=== PATIENT | male | born 1960 | race Caucasian/White ===

== ENCOUNTER 2017-11-14 09:00 | Day surgery (SDC) | payer MEDICARE, SELFPAY ==
[~2017-11-14 09:00] MED LIST: ACET500; ALBU3IS INH; ALBU90OI INH; ALLO100 PO; ASPI325; ASPI325EC PO; ASPI81CH PO; COLCHICINE0.6 MG PO; COLCRYS0.6 MG PO; DULERA 200 MCG/13 GM INH; FLUSAL2505 INH; GUAI600T33 PO; HYDACE5 PO; HYDCHL25 PO; IBUP400 PO; IBUP600; IBUP600 PO; IBUP800 PO; INDO50 PO; MELO7.5 PO; MITIGARE0.6 MG PO; MULTIVITAMIN PO; Mucinex600 MG PO; Nicoderm Cq1 EAC1 TOP; Norco 5-325 Ta1 EACH PO; OXYACE5T PO; PRED10 PO; PRED20 PO; Percocet 5-3251 EACH PO; Prednisone20 MG PO; TIOT18 INH
== END 2017-11-14 12:54 | disposition home or self-care (01) ==
LOC: WOUND 09:00
PROC: 0HBNXZZ Excision of Left Foot Skin, External Approach (ICD-10-PCS; principal; 2017-11-14)
PROC: 0HBLXZZ Excision of Left Lower Leg Skin, External Approach (ICD-10-PCS; principal; 2017-11-14)
DX: Z48.00 Encounter for change or removal of nonsurgical wound dressing (principal); I87.2 Venous insufficiency (chronic) (peripheral); E11.622 Type 2 diabetes mellitus with other skin ulcer; L97.821 Non-pressure chronic ulcer of other part of left lower leg limited to breakdown of skin; L97.221 Non-pressure chronic ulcer of left calf limited to breakdown of skin; L97.211 Non-pressure chronic ulcer of right calf limited to breakdown of skin; L98.491 Non-pressure chronic ulcer of skin of other sites limited to breakdown of skin; E11.621 Type 2 diabetes mellitus with foot ulcer; L97.521 Non-pressure chronic ulcer of other part of left foot limited to breakdown of skin
CPT/HCPCS: G0463

== ENCOUNTER 2019-05-28 00:19 | Day surgery (SDC) | payer MEDICARE, OTHER | END 2019-05-28 22:51 | disposition home or self-care (01) | LOC: WOUND 00:19 | DX: E11.622 Type 2 diabetes mellitus with other skin ulcer (principal); L97.812 Non-pressure chronic ulcer of other part of right lower leg with fat layer exposed; L97.811 Non-pressure chronic ulcer of other part of right lower leg limited to breakdown of skin; L97.822 Non-pressure chronic ulcer of other part of left lower leg with fat layer exposed; E11.51 Type 2 diabetes mellitus with diabetic peripheral angiopathy without gangrene; J44.9 Chronic obstructive pulmonary disease, unspecified; I10 Essential (primary) hypertension; M54.9 Dorsalgia, unspecified; G89.29 Other chronic pain; I87.2 Venous insufficiency (chronic) (peripheral) ==

== ENCOUNTER 2019-05-30 08:00 | Day surgery (SDC) | payer MEDICARE, OTHER | END 2019-05-30 23:05 | disposition home or self-care (01) | LOC: WOUND 08:00 | DX: E11.622 Type 2 diabetes mellitus with other skin ulcer (principal); L97.812 Non-pressure chronic ulcer of other part of right lower leg with fat layer exposed; L97.822 Non-pressure chronic ulcer of other part of left lower leg with fat layer exposed; E11.51 Type 2 diabetes mellitus with diabetic peripheral angiopathy without gangrene; I87.2 Venous insufficiency (chronic) (peripheral); J44.9 Chronic obstructive pulmonary disease, unspecified; I10 Essential (primary) hypertension; M54.9 Dorsalgia, unspecified; G89.29 Other chronic pain ==

== ENCOUNTER 2019-06-04 00:20 | Day surgery (SDC) | payer MEDICARE, OTHER | END 2019-06-04 23:34 | disposition home or self-care (01) | LOC: WOUND 00:20 | DX: E11.622 Type 2 diabetes mellitus with other skin ulcer (principal); L97.811 Non-pressure chronic ulcer of other part of right lower leg limited to breakdown of skin; L97.821 Non-pressure chronic ulcer of other part of left lower leg limited to breakdown of skin; E11.51 Type 2 diabetes mellitus with diabetic peripheral angiopathy without gangrene; I87.2 Venous insufficiency (chronic) (peripheral); J44.9 Chronic obstructive pulmonary disease, unspecified; I10 Essential (primary) hypertension; M54.9 Dorsalgia, unspecified; G89.29 Other chronic pain ==

== ENCOUNTER 2019-06-12 00:23 | Day surgery (SDC) | payer MEDICARE, OTHER | END 2019-06-12 23:00 | disposition home or self-care (01) | LOC: WOUND 00:23 | DX: E11.622 Type 2 diabetes mellitus with other skin ulcer (principal); L97.811 Non-pressure chronic ulcer of other part of right lower leg limited to breakdown of skin; L97.821 Non-pressure chronic ulcer of other part of left lower leg limited to breakdown of skin; E11.51 Type 2 diabetes mellitus with diabetic peripheral angiopathy without gangrene; I73.9 Peripheral vascular disease, unspecified; I87.2 Venous insufficiency (chronic) (peripheral); I10 Essential (primary) hypertension | CPT/HCPCS: 87070; 87077; 87147; 87186; 87205 ==

== ENCOUNTER 2019-06-19 00:11 | Day surgery (SDC) | payer MEDICARE, OTHER | END 2019-06-19 22:46 | disposition home or self-care (01) | LOC: WOUND 00:11 | DX: E11.622 Type 2 diabetes mellitus with other skin ulcer (principal); L97.811 Non-pressure chronic ulcer of other part of right lower leg limited to breakdown of skin; L97.822 Non-pressure chronic ulcer of other part of left lower leg with fat layer exposed; I87.2 Venous insufficiency (chronic) (peripheral); E11.51 Type 2 diabetes mellitus with diabetic peripheral angiopathy without gangrene; J44.9 Chronic obstructive pulmonary disease, unspecified; I10 Essential (primary) hypertension; M54.9 Dorsalgia, unspecified; G89.29 Other chronic pain ==

== ENCOUNTER 2019-06-26 00:28 | Day surgery (SDC) | payer MEDICARE, OTHER | END 2019-06-26 22:46 | disposition home or self-care (01) | LOC: WOUND 00:28 | DX: E11.622 Type 2 diabetes mellitus with other skin ulcer (principal); L97.812 Non-pressure chronic ulcer of other part of right lower leg with fat layer exposed; L97.829 Non-pressure chronic ulcer of other part of left lower leg with unspecified severity; E11.51 Type 2 diabetes mellitus with diabetic peripheral angiopathy without gangrene; I73.9 Peripheral vascular disease, unspecified; E11.40 Type 2 diabetes mellitus with diabetic neuropathy, unspecified; I10 Essential (primary) hypertension; I87.2 Venous insufficiency (chronic) (peripheral) ==

== ENCOUNTER 2019-07-03 08:30 | Day surgery (SDC) | payer MEDICARE, OTHER | END 2019-07-03 23:10 | disposition home or self-care (01) | LOC: WOUND 08:30 | DX: E11.622 Type 2 diabetes mellitus with other skin ulcer (principal); L97.811 Non-pressure chronic ulcer of other part of right lower leg limited to breakdown of skin; I87.2 Venous insufficiency (chronic) (peripheral); I10 Essential (primary) hypertension ==

== ENCOUNTER 2019-07-10 00:24 | Day surgery (SDC) | payer MEDICARE, OTHER | END 2019-07-10 22:54 | disposition home or self-care (01) | LOC: WOUND 00:24 | DX: E11.622 Type 2 diabetes mellitus with other skin ulcer (principal); L97.812 Non-pressure chronic ulcer of other part of right lower leg with fat layer exposed; E11.51 Type 2 diabetes mellitus with diabetic peripheral angiopathy without gangrene; I73.9 Peripheral vascular disease, unspecified; E11.40 Type 2 diabetes mellitus with diabetic neuropathy, unspecified; I87.2 Venous insufficiency (chronic) (peripheral); I10 Essential (primary) hypertension ==

== ENCOUNTER 2019-07-17 00:12 | Day surgery (SDC) | payer MEDICARE, OTHER | END 2019-07-17 22:58 | disposition home or self-care (01) | LOC: WOUND 00:12 | DX: E11.622 Type 2 diabetes mellitus with other skin ulcer (principal); L97.811 Non-pressure chronic ulcer of other part of right lower leg limited to breakdown of skin; E11.51 Type 2 diabetes mellitus with diabetic peripheral angiopathy without gangrene; I73.9 Peripheral vascular disease, unspecified; E11.40 Type 2 diabetes mellitus with diabetic neuropathy, unspecified; I87.2 Venous insufficiency (chronic) (peripheral); I10 Essential (primary) hypertension ==

== ENCOUNTER 2019-07-24 00:15 | Day surgery (SDC) | payer MEDICARE, OTHER | END 2019-07-24 23:17 | disposition home or self-care (01) | LOC: WOUND 00:15 | DX: E11.622 Type 2 diabetes mellitus with other skin ulcer (principal); L97.811 Non-pressure chronic ulcer of other part of right lower leg limited to breakdown of skin; I87.2 Venous insufficiency (chronic) (peripheral); E11.51 Type 2 diabetes mellitus with diabetic peripheral angiopathy without gangrene; J44.9 Chronic obstructive pulmonary disease, unspecified; M54.9 Dorsalgia, unspecified; I10 Essential (primary) hypertension; G89.29 Other chronic pain ==

== ENCOUNTER 2019-07-31 00:41 | Day surgery (SDC) | payer MEDICARE, OTHER | END 2019-07-31 22:56 | disposition home or self-care (01) | LOC: WOUND 00:41 | DX: E11.622 Type 2 diabetes mellitus with other skin ulcer (principal); L97.811 Non-pressure chronic ulcer of other part of right lower leg limited to breakdown of skin; I87.2 Venous insufficiency (chronic) (peripheral); E11.51 Type 2 diabetes mellitus with diabetic peripheral angiopathy without gangrene; I73.9 Peripheral vascular disease, unspecified; I10 Essential (primary) hypertension ==

== ENCOUNTER 2019-08-07 08:51 | Day surgery (SDC) | payer MEDICARE, OTHER | END 2019-08-07 22:49 | disposition home or self-care (01) | LOC: WOUND 08:51 | DX: E11.622 Type 2 diabetes mellitus with other skin ulcer (principal); L97.811 Non-pressure chronic ulcer of other part of right lower leg limited to breakdown of skin; I87.2 Venous insufficiency (chronic) (peripheral); E11.51 Type 2 diabetes mellitus with diabetic peripheral angiopathy without gangrene; I73.9 Peripheral vascular disease, unspecified; E11.40 Type 2 diabetes mellitus with diabetic neuropathy, unspecified; I10 Essential (primary) hypertension | CPT/HCPCS: G0463 ==

== ENCOUNTER 2021-05-19 01:20 | Day surgery (SDC) | payer MEDICARE ==
[~2021-05-19 01:20] MED LIST changes: +Albuterol2.5 MG/0.5 INH; +COMBIVENT RESPIM4 GM INH; +FURO40; +FURO40 PO; +Glucophage Xr750 MG PO; +NYST100000; +Prinivil10 MG PO; +SPIRIVA RESPIMAT4 GM INH; +TORSE20 PO; +TRAM50 PO; +Ventolin/Prove6.7 GM INH
== END 2021-05-19 22:50 | disposition home or self-care (01) ==
LOC: WOUND 01:20
DX: E11.622 Type 2 diabetes mellitus with other skin ulcer (principal); L97.822 Non-pressure chronic ulcer of other part of left lower leg with fat layer exposed; E11.620 Type 2 diabetes mellitus with diabetic dermatitis; E11.59 Type 2 diabetes mellitus with other circulatory complications; I87.2 Venous insufficiency (chronic) (peripheral)
CPT/HCPCS: A9270; G0463

== ENCOUNTER 2021-05-26 01:18 | Day surgery (SDC) | payer MEDICARE | END 2021-05-26 23:15 | disposition home or self-care (01) | LOC: WOUND 01:18 | DX: E11.622 Type 2 diabetes mellitus with other skin ulcer (principal); L97.822 Non-pressure chronic ulcer of other part of left lower leg with fat layer exposed; I87.2 Venous insufficiency (chronic) (peripheral); E11.59 Type 2 diabetes mellitus with other circulatory complications; Z88.5 Allergy status to narcotic agent | CPT/HCPCS: A9270 ==

== ENCOUNTER 2021-06-02 01:26 | Day surgery (SDC) | payer MEDICARE | END 2021-06-02 22:48 | disposition home or self-care (01) | LOC: WOUND 01:26 | DX: E11.59 Type 2 diabetes mellitus with other circulatory complications (principal); I87.2 Venous insufficiency (chronic) (peripheral); J44.9 Chronic obstructive pulmonary disease, unspecified; E11.51 Type 2 diabetes mellitus with diabetic peripheral angiopathy without gangrene; I10 Essential (primary) hypertension; Z86.31 Personal history of diabetic foot ulcer; Z88.5 Allergy status to narcotic agent | CPT/HCPCS: G0463 ==

== ENCOUNTER 2021-09-12 15:35 | Emergency (ER) | payer MEDICARE ==
[~2021-09-12] VITALS: Ht 185.4 cm; Wt 147.4 kg
[2021-09-12 16:05] LABS: BASOPHILS ABSOLUTE AUTO 0.05 K/mm3 (0.00-0.23); BASOPHILS PERCENT AUTO 0 % (0-2); EOSINOPHILS ABSOLUTE AUTO 0.45 K/mm3 (0.00-0.68); EOSINOPHILS PERCENT AUTO 4 % (0-6); Hematocrit 44.5 % (37.0-53.0); Hemoglobin 15.3 g/dL (13.5-17.5); IMMATURE GRAN ABSOLUTE AUTO 0.04 K/mm3 (0.00-0.10); IMMATURE GRAN PERCENT AUTO 0 % (0-1); LYMPHOCYTES PERCENT AUTO 15 % (21-46); MONOCYTES ABSOLUTE AUTO 1.07 K/mm3 (0.16-1.47); MONOCYTES PERCENT AUTO 9 % (4-13); Mean Corpuscular HGB 29.8 pg (26.0-34.0); Mean Corpuscular HGB Conc 34.4 g/dL (31.5-36.5); Mean Corpuscular Volume 87 fL (80-100); Mean Platelet Volume 9.1 fL (9.1-12.4); NEUTROPHILS ABSOLUTE AUTO 8.39 K/mm3 (1.96-9.15); NEUTROPHILS PERCENT AUTO 72 % (41-73); Platelet Count 264 K/mm3 (150-400); RDW Coefficient Variation 13.9 % (11.7-14.2); RDW Standard Deviation 44.3 fL (35.1-46.3); Red Blood Cell Count 5.14 M/mm3 (4.30-5.90)
[2021-09-12 16:28] LABS: Alanine Aminotransfer (ALT/SGP 25 U/L (12-78); Albumin, Blood 3.3 g/dL (3.4-5.0); Albumin/Globulin Ratio 0.7 (0.8-1.8); Alk Phos 92 U/L (50-136); Anion Gap 6 mmol/L (6-16); Aspartate Aminotrans (AST/SGOT 13 U/L (12-37); Bilirubin, Total 0.5 mg/dL (0.1-1.0); Blood Urea Nitrogen 5 mg/dL (8-24); Bun/Creatinine Ratio 8.2 (12.0-20.0); CO2, Blood 27 mmol/L (21-32); Calcium, Blood 8.9 mg/dL (8.5-10.1); Chloride, Blood 97 mmol/L (98-108); Creatinine, Blood 0.61 mg/dL (0.60-1.20); Globulin, Blood 4.8 g/dL (2.2-4.0); Glomerular Filtration Rate >60 (60-); Glucose, Blood 221 mg/dL (70-99); Potassium, Blood 3.9 mmol/L (3.5-5.5); Sodium, Blood 130 mmol/L (136-145); Total Protein, Blood 8.1 g/dL (6.4-8.2)
[2021-09-12] MEDS ORDERED: SULTRIDS PO (17:59)
[2021-09-12] MEDS ORDERED: CEPH500 PO (17:59)
== END 2021-09-12 19:14 | disposition home or self-care (01) ==
LOC: ER 15:35
PROVIDERS: Physician Assistant
DX: L03.115 Cellulitis of right lower limb (principal); E11.9 Type 2 diabetes mellitus without complications; J44.9 Chronic obstructive pulmonary disease, unspecified; I10 Essential (primary) hypertension; F17.200 Nicotine dependence, unspecified, uncomplicated; Z88.5 Allergy status to narcotic agent; Z79.899 Other long term (current) drug therapy; Z79.84 Long term (current) use of oral hypoglycemic drugs
CPT/HCPCS: 36415; 80053; 83690; 83880; 85025; 86850; 86900; 86901; 93005; 93010; 93971; 96365; 96375; 99284-25; J0690; J2405; J3010

== ENCOUNTER 2021-10-08 05:34 | Day surgery (SDC) | payer MEDICARE ==
[~2021-10-08 05:34] MED LIST changes: +CEPH500 PO; +SULTRIDS PO
== END 2021-10-08 23:56 | disposition home or self-care (01) ==
LOC: WOUND 05:34
DX: E11.622 Type 2 diabetes mellitus with other skin ulcer (principal); L97.812 Non-pressure chronic ulcer of other part of right lower leg with fat layer exposed; L97.822 Non-pressure chronic ulcer of other part of left lower leg with fat layer exposed; L97.512 Non-pressure chronic ulcer of other part of right foot with fat layer exposed; I87.2 Venous insufficiency (chronic) (peripheral); E11.59 Type 2 diabetes mellitus with other circulatory complications; I10 Essential (primary) hypertension; J44.9 Chronic obstructive pulmonary disease, unspecified; E11.51 Type 2 diabetes mellitus with diabetic peripheral angiopathy without gangrene; Z88.5 Allergy status to narcotic agent
CPT/HCPCS: A9270; G0463

== ENCOUNTER 2021-10-13 05:30 | Day surgery (SDC) | payer MEDICARE | END 2021-10-13 23:19 | disposition home or self-care (01) | LOC: WOUND 05:30 | DX: E11.622 Type 2 diabetes mellitus with other skin ulcer (principal); L97.822 Non-pressure chronic ulcer of other part of left lower leg with fat layer exposed; E11.59 Type 2 diabetes mellitus with other circulatory complications; I87.2 Venous insufficiency (chronic) (peripheral) ==

== ENCOUNTER 2021-10-20 03:34 | Day surgery (SDC) | payer MEDICARE | END 2021-10-21 12:00 | disposition home or self-care (01) | LOC: WOUND 03:34 | DX: E11.622 Type 2 diabetes mellitus with other skin ulcer (principal); L97.822 Non-pressure chronic ulcer of other part of left lower leg with fat layer exposed; I87.2 Venous insufficiency (chronic) (peripheral); E11.59 Type 2 diabetes mellitus with other circulatory complications ==

== ENCOUNTER 2021-10-25 00:51 | Day surgery (SDC) | payer MEDICARE | END 2021-10-25 23:22 | disposition home or self-care (01) | LOC: WOUND 00:51 | DX: E11.622 Type 2 diabetes mellitus with other skin ulcer (principal); L97.812 Non-pressure chronic ulcer of other part of right lower leg with fat layer exposed; L97.822 Non-pressure chronic ulcer of other part of left lower leg with fat layer exposed; L97.512 Non-pressure chronic ulcer of other part of right foot with fat layer exposed; I87.2 Venous insufficiency (chronic) (peripheral); E11.59 Type 2 diabetes mellitus with other circulatory complications | CPT/HCPCS: A9270 ==

== ENCOUNTER 2021-11-08 02:56 | Day surgery (SDC) | payer MEDICARE | END 2021-11-08 22:45 | disposition home or self-care (01) | LOC: WOUND 02:56 | DX: E11.622 Type 2 diabetes mellitus with other skin ulcer (principal); L97.812 Non-pressure chronic ulcer of other part of right lower leg with fat layer exposed; E11.621 Type 2 diabetes mellitus with foot ulcer; L97.512 Non-pressure chronic ulcer of other part of right foot with fat layer exposed; L97.822 Non-pressure chronic ulcer of other part of left lower leg with fat layer exposed; I10 Essential (primary) hypertension; J44.9 Chronic obstructive pulmonary disease, unspecified; I87.2 Venous insufficiency (chronic) (peripheral); E11.59 Type 2 diabetes mellitus with other circulatory complications | CPT/HCPCS: A9270 ==

== ENCOUNTER 2021-11-15 03:19 | Day surgery (SDC) | payer MEDICARE | END 2021-11-15 23:32 | disposition home or self-care (01) | LOC: WOUND 03:19 | DX: E11.622 Type 2 diabetes mellitus with other skin ulcer (principal); L97.812 Non-pressure chronic ulcer of other part of right lower leg with fat layer exposed; L97.822 Non-pressure chronic ulcer of other part of left lower leg with fat layer exposed; E11.621 Type 2 diabetes mellitus with foot ulcer; L97.512 Non-pressure chronic ulcer of other part of right foot with fat layer exposed; E11.59 Type 2 diabetes mellitus with other circulatory complications; I87.2 Venous insufficiency (chronic) (peripheral); J44.9 Chronic obstructive pulmonary disease, unspecified; E11.51 Type 2 diabetes mellitus with diabetic peripheral angiopathy without gangrene; I10 Essential (primary) hypertension | CPT/HCPCS: A9270 ==

== ENCOUNTER 2021-11-22 03:16 | Day surgery (SDC) | payer MEDICARE | END 2021-11-22 23:43 | disposition home or self-care (01) | LOC: WOUND 03:16 | DX: E11.622 Type 2 diabetes mellitus with other skin ulcer (principal); L97.812 Non-pressure chronic ulcer of other part of right lower leg with fat layer exposed; L97.822 Non-pressure chronic ulcer of other part of left lower leg with fat layer exposed; E11.621 Type 2 diabetes mellitus with foot ulcer; L97.512 Non-pressure chronic ulcer of other part of right foot with fat layer exposed; I10 Essential (primary) hypertension; E11.51 Type 2 diabetes mellitus with diabetic peripheral angiopathy without gangrene; J44.9 Chronic obstructive pulmonary disease, unspecified; I87.2 Venous insufficiency (chronic) (peripheral); E11.59 Type 2 diabetes mellitus with other circulatory complications; L03.311 Cellulitis of abdominal wall | CPT/HCPCS: A9270 ==

== ENCOUNTER 2021-11-29 03:04 | Day surgery (SDC) | payer MEDICARE | END 2021-11-29 12:00 | disposition home or self-care (01) | LOC: WOUND 03:04 | DX: E11.622 Type 2 diabetes mellitus with other skin ulcer (principal); L97.822 Non-pressure chronic ulcer of other part of left lower leg with fat layer exposed; L97.812 Non-pressure chronic ulcer of other part of right lower leg with fat layer exposed; E11.621 Type 2 diabetes mellitus with foot ulcer; L97.512 Non-pressure chronic ulcer of other part of right foot with fat layer exposed; E11.59 Type 2 diabetes mellitus with other circulatory complications; I87.2 Venous insufficiency (chronic) (peripheral); L03.311 Cellulitis of abdominal wall; E11.51 Type 2 diabetes mellitus with diabetic peripheral angiopathy without gangrene; J44.9 Chronic obstructive pulmonary disease, unspecified; I10 Essential (primary) hypertension | CPT/HCPCS: A9270 ==

== ENCOUNTER 2021-12-06 02:04 | Day surgery (SDC) | payer MEDICARE | END 2021-12-06 23:18 | disposition home or self-care (01) | LOC: WOUND 02:04 | DX: E11.622 Type 2 diabetes mellitus with other skin ulcer (principal); L97.812 Non-pressure chronic ulcer of other part of right lower leg with fat layer exposed; L97.822 Non-pressure chronic ulcer of other part of left lower leg with fat layer exposed; L97.519 Non-pressure chronic ulcer of other part of right foot with unspecified severity; I87.2 Venous insufficiency (chronic) (peripheral); E11.59 Type 2 diabetes mellitus with other circulatory complications; L03.311 Cellulitis of abdominal wall; J44.9 Chronic obstructive pulmonary disease, unspecified; I10 Essential (primary) hypertension; E11.621 Type 2 diabetes mellitus with foot ulcer | CPT/HCPCS: A9270; G0463 ==

== ENCOUNTER 2021-12-13 01:34 | Day surgery (SDC) | payer MEDICARE | END 2021-12-13 23:42 | disposition home or self-care (01) | LOC: WOUND 01:34 | DX: E11.622 Type 2 diabetes mellitus with other skin ulcer (principal); L97.822 Non-pressure chronic ulcer of other part of left lower leg with fat layer exposed; L97.812 Non-pressure chronic ulcer of other part of right lower leg with fat layer exposed; E11.59 Type 2 diabetes mellitus with other circulatory complications; I87.2 Venous insufficiency (chronic) (peripheral); L03.311 Cellulitis of abdominal wall | CPT/HCPCS: G0463 ==

== ENCOUNTER 2021-12-20 03:02 | Day surgery (SDC) | payer MEDICARE | END 2021-12-20 23:42 | disposition home or self-care (01) | LOC: WOUND 03:02 | DX: L97.812 Non-pressure chronic ulcer of other part of right lower leg with fat layer exposed (principal); I87.2 Venous insufficiency (chronic) (peripheral); L03.311 Cellulitis of abdominal wall; E11.51 Type 2 diabetes mellitus with diabetic peripheral angiopathy without gangrene; J44.9 Chronic obstructive pulmonary disease, unspecified; I10 Essential (primary) hypertension | CPT/HCPCS: G0463 ==

== ENCOUNTER 2022-01-03 02:19 | Day surgery (SDC) | payer MEDICARE | END 2022-01-03 22:48 | disposition home or self-care (01) | LOC: WOUND 02:19 | DX: E11.622 Type 2 diabetes mellitus with other skin ulcer (principal); L97.812 Non-pressure chronic ulcer of other part of right lower leg with fat layer exposed; L97.822 Non-pressure chronic ulcer of other part of left lower leg with fat layer exposed; I87.2 Venous insufficiency (chronic) (peripheral); E11.59 Type 2 diabetes mellitus with other circulatory complications; L03.311 Cellulitis of abdominal wall; E11.51 Type 2 diabetes mellitus with diabetic peripheral angiopathy without gangrene; J44.9 Chronic obstructive pulmonary disease, unspecified; I10 Essential (primary) hypertension | CPT/HCPCS: A9270; G0463 ==

== ENCOUNTER 2022-06-08 19:42 | Inpatient (IN) | payer MEDICARE, OTHER ==
[~2022-06-08] VITALS: Ht 185.4 cm; Wt 155.7 kg
[~2022-06-08 19:42] MED LIST changes: -Glucophage Xr750 MG PO; +METF500C PO
[2022-06-08 20:26] LABS: BASOPHILS ABSOLUTE AUTO 0.07 K/mm3 (0.00-0.23); BASOPHILS PERCENT AUTO 0 % (0-2); EOSINOPHILS ABSOLUTE AUTO 0.12 K/mm3 (0.00-0.68); EOSINOPHILS PERCENT AUTO 1 % (0-6); Hematocrit 40.6 % (37.0-53.0); Hemoglobin 13.9 g/dL (13.5-17.5); IMMATURE GRAN ABSOLUTE AUTO 0.08 K/mm3 (0.00-0.10); IMMATURE GRAN PERCENT AUTO 1 % (0-1); LYMPHOCYTES ABSOLUTE AUTO 1.66 K/mm3 (0.84-5.20); LYMPHOCYTES PERCENT AUTO 10 % (21-46); MONOCYTES ABSOLUTE AUTO 0.88 K/mm3 (0.16-1.47); MONOCYTES PERCENT AUTO 5 % (4-13); Mean Corpuscular HGB 29.6 pg (26.0-34.0); Mean Corpuscular HGB Conc 34.2 g/dL (31.5-36.5); Mean Corpuscular Volume 86 fL (80-100); Mean Platelet Volume 9.9 fL (9.1-12.4); NEUTROPHILS ABSOLUTE AUTO 14.37 K/mm3 (1.96-9.15); NEUTROPHILS PERCENT AUTO 84 % (41-73); Platelet Count 248 K/mm3 (150-400); RDW Coefficient Variation 14.2 % (11.7-14.2); RDW Standard Deviation 45.2 fL (35.1-46.3); White Blood Cell Count 17.18 K/mm3 (4.00-11.30)
[2022-06-08 20:39] LABS: Alanine Aminotransfer (ALT/SGP 33 U/L (12-78); Albumin, Blood 3.1 g/dL (3.4-5.0); Albumin/Globulin Ratio 0.7 (0.8-1.8); Alk Phos 81 U/L (50-136); Anion Gap 5 mmol/L (6-16); Aspartate Aminotrans (AST/SGOT 22 U/L (12-37); Bilirubin, Total 0.5 mg/dL (0.1-1.0); Blood Urea Nitrogen 14 mg/dL (8-24); Bun/Creatinine Ratio 20.9 (12.0-20.0); CO2, Blood 26 mmol/L (21-32); Calcium, Blood 9.4 mg/dL (8.5-10.1); Chloride, Blood 98 mmol/L (98-108); Creatinine, Blood 0.67 mg/dL (0.60-1.20); Globulin, Blood 4.4 g/dL (2.2-4.0); Glomerular Filtration Rate 106 (60-); Glucose, Blood 134 mg/dL (70-99); Potassium, Blood 3.8 mmol/L (3.5-5.5); Sodium, Blood 129 mmol/L (136-145); Total Protein, Blood 7.5 g/dL (6.4-8.2)
[2022-06-08 21:16] LABS: C-REACTIVE PROTEIN, EXT RANGE >19.000 mg/dL (0.000-0.300)
[2022-06-09 05:01] LABS: BASOPHILS ABSOLUTE AUTO 0.05 K/mm3 (0.00-0.23); BASOPHILS PERCENT AUTO 0 % (0-2); EOSINOPHILS ABSOLUTE AUTO 0.17 K/mm3 (0.00-0.68); EOSINOPHILS PERCENT AUTO 1 % (0-6); Hematocrit 39.3 % (37.0-53.0); Hemoglobin 13.4 g/dL (13.5-17.5); IMMATURE GRAN ABSOLUTE AUTO 0.07 K/mm3 (0.00-0.10); IMMATURE GRAN PERCENT AUTO 1 % (0-1); LYMPHOCYTES ABSOLUTE AUTO 1.37 K/mm3 (0.84-5.20); LYMPHOCYTES PERCENT AUTO 10 % (21-46); MONOCYTES ABSOLUTE AUTO 0.91 K/mm3 (0.16-1.47); MONOCYTES PERCENT AUTO 7 % (4-13); Mean Corpuscular HGB 29.5 pg (26.0-34.0); Mean Corpuscular HGB Conc 34.1 g/dL (31.5-36.5); Mean Corpuscular Volume 87 fL (80-100); Mean Platelet Volume 9.8 fL (9.1-12.4); NEUTROPHILS ABSOLUTE AUTO 11.13 K/mm3 (1.96-9.15); NEUTROPHILS PERCENT AUTO 81 % (41-73); Platelet Count 234 K/mm3 (150-400); RDW Coefficient Variation 14.3 % (11.7-14.2); RDW Standard Deviation 45.2 fL (35.1-46.3); Red Blood Cell Count 4.54 M/mm3 (4.30-5.90)
[2022-06-09 05:23] LABS: Albumin, Blood 2.9 g/dL (3.4-5.0); Albumin/Globulin Ratio 0.7 (0.8-1.8); Bilirubin, Total 0.4 mg/dL (0.1-1.0); Bun/Creatinine Ratio 18.8 (12.0-20.0); Calcium, Blood 8.8 mg/dL (8.5-10.1); Creatinine, Blood 0.74 mg/dL (0.60-1.20); Globulin, Blood 4.2 g/dL (2.2-4.0); Potassium, Blood 3.5 mmol/L (3.5-5.5); Total Protein, Blood 7.1 g/dL (6.4-8.2)
--- NOTE | 2022-06-09 06:23 | NUR ---
SHIFT SUMMARY PATIENT A&0X4, PLEASANT AND COOPERATIVE. CELLULITIS ON LEFT L MARKED WITH DEMARCATION LINES. WOUNDS WERE DOCUMENTED ON ARRIVAL, AND PICTURES PLACED IN THE CHART. RT PROVIDED A BREATHING TREATMENT. SBA TO BATHROOM WITH FWW. CALL LIGHT WITHIN REACH.
--- NOTE | 2022-06-09 17:33 | NUR ---
SHIFT SUMMARY PT ADMITTED FOR CELLULITIS OF THE L LEG. 2 SORES PRESENT ON THE LEG AND COVERED. PT'S LEG IS COVERED WITH ARLEEN DRESSING FOR COMFORT. AWAITING WOUND CARE CONSULT AND RECEIVING IV ABX. PT TREATED FOR PAIN PER EMR. VSS. WILL REPORT TO ANDREA HAILE.
[2022-06-10 04:53] LABS: BASOPHILS ABSOLUTE AUTO 0.04 K/mm3 (0.00-0.23); BASOPHILS PERCENT AUTO 1 % (0-2); EOSINOPHILS ABSOLUTE AUTO 0.43 K/mm3 (0.00-0.68); EOSINOPHILS PERCENT AUTO 5 % (0-6); Hematocrit 38.9 % (37.0-53.0); Hemoglobin 13.1 g/dL (13.5-17.5); IMMATURE GRAN ABSOLUTE AUTO 0.04 K/mm3 (0.00-0.10); IMMATURE GRAN PERCENT AUTO 1 % (0-1); LYMPHOCYTES ABSOLUTE AUTO 1.36 K/mm3 (0.84-5.20); LYMPHOCYTES PERCENT AUTO 17 % (21-46); MONOCYTES ABSOLUTE AUTO 0.82 K/mm3 (0.16-1.47); MONOCYTES PERCENT AUTO 10 % (4-13); Mean Corpuscular HGB 29.3 pg (26.0-34.0); Mean Corpuscular HGB Conc 33.7 g/dL (31.5-36.5); Mean Corpuscular Volume 87 fL (80-100); Mean Platelet Volume 9.8 fL (9.1-12.4); NEUTROPHILS ABSOLUTE AUTO 5.22 K/mm3 (1.96-9.15); NEUTROPHILS PERCENT AUTO 66 % (41-73); Platelet Count 214 K/mm3 (150-400); RDW Coefficient Variation 14.1 % (11.7-14.2); RDW Standard Deviation 45.2 fL (35.1-46.3); Red Blood Cell Count 4.47 M/mm3 (4.30-5.90); White Blood Cell Count 7.91 K/mm3 (4.00-11.30)
--- NOTE | 2022-06-10 04:57 | NUR ---
SHIFT SUMMARY: A/OX4, ADLIB IN ROOM. PT REQUESTED IV FLUIDS TO BE STOPPED DUE TO ADEQUATE PO INTAKE- SÁNCHEZ DOYLE APPROVED STOPPING IV FLUIDS. PER PT CHRONIC BACK PAIN DOES NOT ALLOW HIM TO LAY DOWN IN BED, BED SET TO CHAIR POSITION TO ASSIST IN COMFORT FOR SLEEPING. NO ACUTE CHANGES THROUGHOUT THE NIGHT. BED IN LOW POSITION, CALL JORGE AND BELONGINGS IN REACH.
[2022-06-10 05:22] LABS: Bun/Creatinine Ratio 14.4 (12.0-20.0); Calcium, Blood 8.7 mg/dL (8.5-10.1); Creatinine, Blood 0.56 mg/dL (0.60-1.20); Potassium, Blood 3.8 mmol/L (3.5-5.5)
[2022-06-10] MEDS ORDERED: TERB250 PO (15:40)
[2022-06-10] MEDS ORDERED: VISBIOME 112.51 EACH PO (15:40)
[2022-06-10] MEDS ORDERED: CEFTRIAXONE2 G1 IV (15:40)
--- NOTE | 2022-06-10 17:22 | NUR ---
DISCHARGE SUMMARY PATIENT DISCHARGED HOME. DISCHARGE PAPERWORK REVIEWED WITH PATIENT AND ALL QUESTIONS ANSWERED. PRESCRIPTIONS FAXED TO PREFERRED PHARMACY. IV D/C'D. FUTURE APPTS AT [facility] IV [facility]OT[facility] CONFIRMED AND WRITTEN ON PATIENTS DISCHARGE PAPERWORK. PATIENT AND ALL BELONGINGS TAKEN VIA WHEEL CHAIR TO PERSONAL VEHICLE AND TAKEN BY FAMILY.
== END 2022-06-10 17:10 | disposition home or self-care (01) | DRG 872 ==
LOC: ER 19:42 → MEDS 22:51 → ER 06-09 00:11 → MEDS 06-09 01:01
PROVIDERS: Emergency Medicine; Family Medicine; ADMIT Internal Medicine
DX: A41.9 Sepsis, unspecified organism (principal); L03.115 Cellulitis of right lower limb; E87.1 Hypo-osmolality and hyponatremia; E11.9 Type 2 diabetes mellitus without complications; J44.9 Chronic obstructive pulmonary disease, unspecified; I87.2 Venous insufficiency (chronic) (peripheral); M10.9 Gout, unspecified; B35.1 Tinea unguium; F17.210 Nicotine dependence, cigarettes, uncomplicated; Z88.5 Allergy status to narcotic agent; Z98.890 Other specified postprocedural states; Z79.899 Other long term (current) drug therapy; Z79.84 Long term (current) use of oral hypoglycemic drugs; S99.921A Unspecified injury of right foot, initial encounter; W18.30XA Fall on same level, unspecified, initial encounter
CPT/HCPCS: 36415; 80048; 80053; 82947; 83605; 83880; 85025; 85651; 86140; 87040; 93005; 93010; 94640; 94664; 94760; 96365; 96366; 96375; 99285-25; A9270; J0690; J1650; J1885; J2765; J3370; J7030; J7050; J7120

== ENCOUNTER 2022-06-11 09:24 | Day surgery (SDC) | payer MEDICARE ==
[~2022-06-11 09:24] MED LIST changes: +CEFTRIAXONE2 G1 IV; +TERB250 PO; +VISBIOME 112.51 EACH PO
== END 2022-06-11 09:54 | disposition home or self-care (01) ==
LOC: ATC 09:24
DX: L03.115 Cellulitis of right lower limb (principal); I10 Essential (primary) hypertension; E11.9 Type 2 diabetes mellitus without complications; J44.9 Chronic obstructive pulmonary disease, unspecified; F17.210 Nicotine dependence, cigarettes, uncomplicated; Z88.5 Allergy status to narcotic agent; Z79.84 Long term (current) use of oral hypoglycemic drugs; Z79.51 Long term (current) use of inhaled steroids; Z79.899 Other long term (current) drug therapy
CPT/HCPCS: 96374; J0696

== ENCOUNTER 2022-06-12 09:32 | Day surgery (SDC) | payer MEDICARE | END 2022-06-12 09:53 | disposition home or self-care (01) | LOC: ATC 09:32 | DX: L03.115 Cellulitis of right lower limb (principal); I10 Essential (primary) hypertension; E11.9 Type 2 diabetes mellitus without complications; J44.9 Chronic obstructive pulmonary disease, unspecified; F17.210 Nicotine dependence, cigarettes, uncomplicated; Z88.5 Allergy status to narcotic agent; Z79.51 Long term (current) use of inhaled steroids; Z79.84 Long term (current) use of oral hypoglycemic drugs; Z79.899 Other long term (current) drug therapy | CPT/HCPCS: 96374; J0696 ==

== ENCOUNTER 2022-06-13 00:04 | Day surgery (SDC) | payer MEDICARE ==
--- NOTE | 2022-06-13 10:09 | NUR ---
PT STATES THAT WHEN HE WAS DISCHARGED FROM HOSPITAL THE RN DID NOT CALL IN HIS LASIX. CALLED AND SPOKE TO NEYDA BALL RN ABOUT THIS. SHE STATES THAT SHE WILL HANDLE THIS AND GIVE THE PT A CALL AFTER.
== END 2022-06-13 09:51 | disposition home or self-care (01) ==
LOC: ATC 00:04
DX: L03.115 Cellulitis of right lower limb (principal); I10 Essential (primary) hypertension; E11.9 Type 2 diabetes mellitus without complications; J44.9 Chronic obstructive pulmonary disease, unspecified; F17.210 Nicotine dependence, cigarettes, uncomplicated; Z79.51 Long term (current) use of inhaled steroids; Z79.899 Other long term (current) drug therapy; Z79.84 Long term (current) use of oral hypoglycemic drugs
CPT/HCPCS: 96374; J0696

== ENCOUNTER 2022-06-14 04:03 | Day surgery (SDC) | payer MEDICARE | END 2022-06-14 10:05 | disposition home or self-care (01) | LOC: ATC 04:03 | DX: A41.9 Sepsis, unspecified organism (principal); L03.115 Cellulitis of right lower limb; I10 Essential (primary) hypertension; E11.9 Type 2 diabetes mellitus without complications; J44.9 Chronic obstructive pulmonary disease, unspecified; F17.200 Nicotine dependence, unspecified, uncomplicated; Z88.5 Allergy status to narcotic agent; Z79.84 Long term (current) use of oral hypoglycemic drugs; Z79.899 Other long term (current) drug therapy | CPT/HCPCS: 96374; J0696 ==

== ENCOUNTER 2022-06-15 01:43 | Day surgery (SDC) | payer MEDICARE ==
--- NOTE | 2022-06-15 09:48 | NUR ---
PT'S LAST DOSE OF ANTIBIOTICS IS TODAY. HE HAS AN APPOINTMENT IN THE [facility] THIS AFTERNOON AND A F/U APPOINTMENT WITH HIS PCP ON 06/21/22.
== END 2022-06-15 09:44 | disposition home or self-care (01) ==
LOC: ATC 01:43
DX: L03.115 Cellulitis of right lower limb (principal); Z88.5 Allergy status to narcotic agent; E11.9 Type 2 diabetes mellitus without complications; J44.9 Chronic obstructive pulmonary disease, unspecified; I10 Essential (primary) hypertension; F17.200 Nicotine dependence, unspecified, uncomplicated; E87.1 Hypo-osmolality and hyponatremia
CPT/HCPCS: 96374; J0696

== ENCOUNTER 2022-06-15 09:04 | Day surgery (SDC) | payer MEDICARE | END 2022-06-15 23:49 | disposition home or self-care (01) | LOC: WOUND 09:04 | DX: I87.313 Chronic venous hypertension (idiopathic) with ulcer of bilateral lower extremity (principal); E11.621 Type 2 diabetes mellitus with foot ulcer; E11.622 Type 2 diabetes mellitus with other skin ulcer; L97.822 Non-pressure chronic ulcer of other part of left lower leg with fat layer exposed; L97.819 Non-pressure chronic ulcer of other part of right lower leg with unspecified severity; L97.522 Non-pressure chronic ulcer of other part of left foot with fat layer exposed; L03.116 Cellulitis of left lower limb; E11.51 Type 2 diabetes mellitus with diabetic peripheral angiopathy without gangrene; I10 Essential (primary) hypertension; J44.9 Chronic obstructive pulmonary disease, unspecified; F17.210 Nicotine dependence, cigarettes, uncomplicated; E66.01 Morbid (severe) obesity due to excess calories; Z68.41 Body mass index [BMI] 40.0-44.9, adult; Z88.5 Allergy status to narcotic agent | CPT/HCPCS: 99406; A9270; G0463 ==

== ENCOUNTER 2022-06-22 03:22 | Day surgery (SDC) | payer MEDICARE | END 2022-06-22 23:19 | disposition home or self-care (01) | LOC: WOUND 03:22 | DX: E11.621 Type 2 diabetes mellitus with foot ulcer (principal); L97.522 Non-pressure chronic ulcer of other part of left foot with fat layer exposed; I87.313 Chronic venous hypertension (idiopathic) with ulcer of bilateral lower extremity; L03.116 Cellulitis of left lower limb; E11.51 Type 2 diabetes mellitus with diabetic peripheral angiopathy without gangrene; J44.9 Chronic obstructive pulmonary disease, unspecified; I10 Essential (primary) hypertension | CPT/HCPCS: 99406 ==

== ENCOUNTER 2022-06-29 06:36 | Day surgery (SDC) | payer MEDICARE, OTHER | END 2022-06-29 23:38 | disposition home or self-care (01) | LOC: WOUND 06:36 | DX: E11.621 Type 2 diabetes mellitus with foot ulcer (principal); L97.522 Non-pressure chronic ulcer of other part of left foot with fat layer exposed; I87.313 Chronic venous hypertension (idiopathic) with ulcer of bilateral lower extremity; L03.116 Cellulitis of left lower limb; E11.622 Type 2 diabetes mellitus with other skin ulcer; E11.59 Type 2 diabetes mellitus with other circulatory complications; Z72.0 Tobacco use; E11.51 Type 2 diabetes mellitus with diabetic peripheral angiopathy without gangrene; J44.9 Chronic obstructive pulmonary disease, unspecified | CPT/HCPCS: G0463 ==

== ENCOUNTER → 2024-07-11 | Outpatient (CLI) | payer MEDICARE, OTHER ==
[~2024-07-11] MED LIST changes: +AMOCLA875 PO; +ASPI325 PO; +BENADRYL25 MG PO; +CLOTRIMAZOLE10 M2; +FLUTICASONE PRO16 GM; +GLIP10ER; +INCRUSE ELLIPTA INH; +SPIR25 PO; +SPIRIVA RESPIMAT4 G3 INH; +SULFAMETHOXAZO1 EAC1; +TIZA4 PO; +TRAM50; +VITAMIN D32000 UNI1 PO
== END ==
LOC: LAB 17:42 → LAB SHORT 17:42
DX: L97.411 Non-pressure chronic ulcer of right heel and midfoot limited to breakdown of skin (principal); L03.115 Cellulitis of right lower limb
CPT/HCPCS: 87070; 87147; 87205

== ENCOUNTER 2024-10-18 08:59 | Day surgery (SDC) | payer MEDICARE, OTHER ==
[2024-10-18] VITALS (10 sets, daily range): BP systolic 124–192; BP diastolic 66–118
[~2024-10-18] VITALS: Ht 185.4 cm; Wt 147.0 kg
[~2024-10-18 08:59] MED LIST changes: +ALBU8HFA2 INH; +ASCO500 PO; +ATOR40TA PO; +NICO21TP TOP
[2024-10-18] MEDS ORDERED: NS 100 ML IV ONE (09:56)
[2024-10-18] MEDS ORDERED: Heparin Sodium 1000 Units/ML 10ML MDV ONE (09:57)
[2024-10-18] MEDS ORDERED: NS 1,000 ML IV ONE ×2 (09:57→10:08)
[2024-10-18] MEDS ORDERED: NS 250 ML IV ONE (10:04)
[2024-10-18] MEDS ORDERED: Midazolam HCl 1MG / ML 2ML Vial ONE (10:07)
[2024-10-18] MEDS ORDERED: FentaNYL Citrate 50 MCG/ML 2 ML Injection ONE (10:08)
--- NOTE | 2024-10-18 12:11 | NUR ---
PT SITTING UP, EATING AND DRINKING WITH NO COMPLICATIONS. PT PROVIDED URNAL. SITE WITH NO SIGNS OF BLEEDING, OOZING OR HEMATOMA. PT DENIES ANY PAIN. WILL CONTINUE TO MONITOR.
--- NOTE | 2024-10-18 12:30 | NUR ---
right groin site soft and nontender. dressiing intact, no swelling , no bleeding. pt sitting up in bed.
--- NOTE | 2024-10-18 13:15 | NUR ---
patient up at bedside and dressed, site remains, soft and nontender, no swelling, no hematoma.
--- NOTE | 2024-10-18 13:57 | NUR ---
patient verbalized understanding of dischrge instructions and precautions, no further questions, iv site dced with catheter intact. pt taken to entrance via wheelchair, son driving.
== END 2024-10-18 15:13 | disposition home or self-care (01) ==
LOC: MHTC 08:59
DX: E13.51 Other specified diabetes mellitus with diabetic peripheral angiopathy without gangrene (principal); E13.621 Other specified diabetes mellitus with foot ulcer; L97.529 Non-pressure chronic ulcer of other part of left foot with unspecified severity; I10 Essential (primary) hypertension; J44.9 Chronic obstructive pulmonary disease, unspecified; F17.210 Nicotine dependence, cigarettes, uncomplicated; Z79.82 Long term (current) use of aspirin; Z79.84 Long term (current) use of oral hypoglycemic drugs; Z79.899 Other long term (current) drug therapy; Z88.5 Allergy status to narcotic agent
CPT/HCPCS: 37228; 75625; 75716; 75774; 76937; 99152; 99153; C1725; C1769; C1887; C1894; J1644; J2250; J3010; J7030; J7050; Q9967

== ENCOUNTER 2024-10-30 12:30 | Emergency (ER) | payer MEDICARE ==
[~2024-10-30] VITALS: Ht 185.4 cm; Wt 142.9 kg
[2024-10-30 12:48] VITALS: BP 160/93
[2024-10-30] MEDS ORDERED: TraMADol HCl 50 MG Tab PO ONE (15:40)
[2024-10-30 16:04] LABS: BASOPHILS ABSOLUTE AUTO 0.04 K/mm3 (0.00-0.23); BASOPHILS PERCENT AUTO 0 % (0-2); EOSINOPHILS ABSOLUTE AUTO 0.25 K/mm3 (0.00-0.68); EOSINOPHILS PERCENT AUTO 3 % (0-6); Hematocrit 38.2 % (37.0-53.0); Hemoglobin 13.4 g/dL (13.5-17.5); IMMATURE GRAN ABSOLUTE AUTO 0.03 K/mm3 (0.00-0.10); IMMATURE GRAN PERCENT AUTO 0 % (0-1); LYMPHOCYTES ABSOLUTE AUTO 0.96 K/mm3 (0.84-5.20); LYMPHOCYTES PERCENT AUTO 10 % (21-46); MONOCYTES ABSOLUTE AUTO 0.79 K/mm3 (0.16-1.47); MONOCYTES PERCENT AUTO 8 % (4-13); Mean Corpuscular HGB 29.8 pg (26.0-34.0); Mean Corpuscular HGB Conc 35.1 g/dL (31.5-36.5); Mean Corpuscular Volume 85 fL (80-100); Mean Platelet Volume 9.1 fL (9.1-12.4); NEUTROPHILS ABSOLUTE AUTO 7.69 K/mm3 (1.96-9.15); NEUTROPHILS PERCENT AUTO 79 % (41-73); Platelet Count 295 K/mm3 (150-400); RDW Coefficient Variation 13.6 % (11.7-14.2); RDW Standard Deviation 42.5 fL (35.1-46.3); Red Blood Cell Count 4.49 M/mm3 (4.30-5.90); White Blood Cell Count 9.76 K/mm3 (4.00-11.30)
[2024-10-30] MEDS ORDERED: Doxycycline Hyclate 100 MG TAB PO ONE (16:20)
[2024-10-30] MEDS ORDERED: DOXY100 PO (16:22)
[2024-10-30 16:23] LABS: Albumin, Blood 2.6 g/dL (3.4-5.0); Albumin/Globulin Ratio 0.5 (0.8-1.8); Bilirubin, Total 0.4 mg/dL (0.1-1.0); Bun/Creatinine Ratio 18.1 (12.0-20.0); Calcium, Blood 9.2 mg/dL (8.5-10.1); Creatinine, Blood 0.55 mg/dL (0.60-1.20); Globulin, Blood 5.4 g/dL (2.2-4.0)
== END 2024-10-30 17:20 | disposition home or self-care (01) ==
LOC: ER 12:30
PROVIDERS: Student in an Organized Health Care Education/Training Program
DX: E11.621 Type 2 diabetes mellitus with foot ulcer (principal); L97.519 Non-pressure chronic ulcer of other part of right foot with unspecified severity; L03.115 Cellulitis of right lower limb; J44.9 Chronic obstructive pulmonary disease, unspecified; I10 Essential (primary) hypertension; F17.200 Nicotine dependence, unspecified, uncomplicated; Z88.5 Allergy status to narcotic agent; Z79.899 Other long term (current) drug therapy; Z79.82 Long term (current) use of aspirin; Z79.84 Long term (current) use of oral hypoglycemic drugs
CPT/HCPCS: 73660; 80053; 85025; 99283-25; A9270

== ENCOUNTER 2024-11-07 18:08 | Observation (INO) | payer MEDICARE ==
[~2024-11-07] VITALS: Ht 185.4 cm; Wt 138.3 kg
[~2024-11-07 18:08] MED LIST changes: +DOXY100 PO
[2024-11-07 19:48] LABS: BASOPHILS ABSOLUTE AUTO 0.06 K/mm3 (0.00-0.23); BASOPHILS PERCENT AUTO 1 % (0-2); EOSINOPHILS PERCENT AUTO 4 % (0-6); Hematocrit 41.2 % (37.0-53.0); Hemoglobin 13.9 g/dL (13.5-17.5); IMMATURE GRAN ABSOLUTE AUTO 0.05 K/mm3 (0.00-0.10); IMMATURE GRAN PERCENT AUTO 1 % (0-1); LYMPHOCYTES ABSOLUTE AUTO 2.19 K/mm3 (0.84-5.20); LYMPHOCYTES PERCENT AUTO 21 % (21-46); MONOCYTES ABSOLUTE AUTO 0.73 K/mm3 (0.16-1.47); MONOCYTES PERCENT AUTO 7 % (4-13); Mean Corpuscular HGB 29.6 pg (26.0-34.0); Mean Corpuscular HGB Conc 33.7 g/dL (31.5-36.5); Mean Corpuscular Volume 88 fL (80-100); Mean Platelet Volume 8.6 fL (9.1-12.4); NEUTROPHILS ABSOLUTE AUTO 7.22 K/mm3 (1.96-9.15); NEUTROPHILS PERCENT AUTO 68 % (41-73); Platelet Count 401 K/mm3 (150-400); RDW Coefficient Variation 14.1 % (11.7-14.2); RDW Standard Deviation 44.7 fL (35.1-46.3); Red Blood Cell Count 4.69 M/mm3 (4.30-5.90); White Blood Cell Count 10.65 K/mm3 (4.00-11.30)
[2024-11-07 20:16] LABS: Albumin, Blood 3.1 g/dL (3.4-5.0); Albumin/Globulin Ratio 0.6 (0.8-1.8); Bilirubin, Total 0.4 mg/dL (0.1-1.0); Creatinine, Blood 0.75 mg/dL (0.60-1.20); Globulin, Blood 5.4 g/dL (2.2-4.0); Potassium, Blood 4.3 mmol/L (3.5-5.5); Total Protein, Blood 8.5 g/dL (6.4-8.2)
[2024-11-07] MEDS ORDERED: FLU VACC TS2024-25(6MOS UP)/PF 45 MCG/0.5 ML SYRINGE IM ONE (22:40)
[2024-11-07] MEDS ORDERED: Acetaminophen 325 MG TABLET PO PRN (22:45)
[2024-11-07] MEDS ORDERED: Ondansetron HCl 2 MG / ML 2ML Vial IV PRN (22:45)
[2024-11-08] VITALS (10 sets, daily range): BP systolic 135–162; BP diastolic 71–92
[2024-11-08] MEDS ORDERED: Lactated Ringer's 1,000 ML IV SCH
[2024-11-08] MEDS ORDERED: Lactated Ringer's 1,000 ML IV ONE (01:57)
[2024-11-08] MEDS ORDERED: Albuterol 2.5 MG/3 ML VIAL INH PRN (02:15)
[2024-11-08] MEDS ORDERED: TraMADol HCl 50 MG Tab PO PRN (02:15)
[2024-11-08] MEDS ORDERED: DiphenhydrAMINE HCL 25 MG Cap PO PRN (02:20)
[2024-11-08 04:53] LABS: BASOPHILS ABSOLUTE AUTO 0.06 K/mm3 (0.00-0.23); BASOPHILS PERCENT AUTO 1 % (0-2); EOSINOPHILS ABSOLUTE AUTO 0.34 K/mm3 (0.00-0.68); EOSINOPHILS PERCENT AUTO 4 % (0-6); Hematocrit 38.5 % (37.0-53.0); Hemoglobin 12.8 g/dL (13.5-17.5); IMMATURE GRAN ABSOLUTE AUTO 0.05 K/mm3 (0.00-0.10); IMMATURE GRAN PERCENT AUTO 1 % (0-1); LYMPHOCYTES ABSOLUTE AUTO 1.86 K/mm3 (0.84-5.20); LYMPHOCYTES PERCENT AUTO 20 % (21-46); MONOCYTES ABSOLUTE AUTO 0.74 K/mm3 (0.16-1.47); MONOCYTES PERCENT AUTO 8 % (4-13); Mean Corpuscular HGB 29.2 pg (26.0-34.0); Mean Corpuscular HGB Conc 33.2 g/dL (31.5-36.5); Mean Corpuscular Volume 88 fL (80-100); Mean Platelet Volume 8.7 fL (9.1-12.4); NEUTROPHILS ABSOLUTE AUTO 6.26 K/mm3 (1.96-9.15); NEUTROPHILS PERCENT AUTO 67 % (41-73); Platelet Count 377 K/mm3 (150-400); Red Blood Cell Count 4.38 M/mm3 (4.30-5.90); White Blood Cell Count 9.31 K/mm3 (4.00-11.30)
[2024-11-08 05:14] LABS: Albumin, Blood 2.8 g/dL (3.4-5.0); Albumin/Globulin Ratio 0.5 (0.8-1.8); Bilirubin, Total 0.5 mg/dL (0.1-1.0); Bun/Creatinine Ratio 16.7 (12.0-20.0); Calcium, Blood 9.1 mg/dL (8.5-10.1); Creatinine, Blood 0.66 mg/dL (0.60-1.20); Globulin, Blood 5.1 g/dL (2.2-4.0); Potassium, Blood 4.2 mmol/L (3.5-5.5); Total Protein, Blood 7.9 g/dL (6.4-8.2)
[2024-11-08] MEDS ORDERED: propofoL 50 ML IV ONE (07:17)
[2024-11-08] MEDS ORDERED: Dexamethasone Sod Phos 10 MG/ML 1ML VIAL ONE (07:20)
[2024-11-08] MEDS ORDERED: Ondansetron HCl 2 MG / ML 2ML Vial ONE (07:20)
[2024-11-08] MEDS ORDERED: Metoclopramide HCl 5MG / ML 2ML Vial ONE (07:20)
[2024-11-08] MEDS ORDERED: Lidocaine HCl 2% 20 ML MDV ONE (07:22)
[2024-11-08] MEDS ORDERED: propofoL 0 ML IV ONE (07:22)
[2024-11-08] MEDS ORDERED: Lidocaine HCL 1% 10 ML MDV ONE (07:33)
[2024-11-08] MEDS ORDERED: Bupivacaine 0.5% Inj 10 ML Vial ONE (07:33)
[2024-11-08] MEDS ORDERED: Ipratropium/Albuterol SulF 2.5-0.5MG/3 ML Amp INH ONE (07:45)
--- NOTE | 2024-11-08 07:45 | NUR ---
PT INTO SDS VIA W/C FROM ER FOR RIGHT FOOT SURGERY. Patient confirms NPO status and agrees with scheduled surgery. EXCEPT PT WAS CHEWING GUM. ALSO CHEWS TABACCO BUT STATES "I'VE NOT HAD ANYTHING FOR 8 HOURS" Pre-Op teaching done. Pt verbalizes understanding. History, Chart, Medications and Allergies reviewed before start of procedure.
[2024-11-08] MEDS ORDERED: HYDROmorphone HCl/Pf 1MG SYR ONE (07:53)
[2024-11-08] MEDS ORDERED: propofoL 20 ML IV ONE (07:53)
[2024-11-08] MEDS ORDERED: Ketorolac Tromethamine 30mg Vial ONE (08:01)
[2024-11-08] MEDS ORDERED: Phenylephrine HCl 100 MCG/ML-NS 10MLSYR (1MG/10ML) ONE (08:09)
[2024-11-08] MEDS ORDERED: Ascorbic Acid 500 MG Tab PO SCH (09:00)
[2024-11-08] MEDS ORDERED: Cholecalciferol 1000 Unit Tablet (=25MCG) PO SCH (09:00)
[2024-11-08] MEDS ORDERED: Torsemide 20 MG TAB PO SCH (09:00)
[2024-11-08] MEDS ORDERED: Fluticasone 0.05% Nasal Spray SCH (09:00)
[2024-11-08] MEDS ORDERED: Allopurinol 100 MG Tab PO SCH (09:00)
[2024-11-08] MEDS ORDERED: Atorvastatin 40 MG Tab PO SCH (09:00)
[2024-11-08] MEDS ORDERED: Docusate Sodium 100 MG Cap PO SCH (09:00)
[2024-11-08] MEDS ORDERED: Lisinopril 10 MG Tab PO SCH (09:00)
[2024-11-08] MEDS ORDERED: Spironolactone 25 MG Tab PO SCH (09:00)
[2024-11-08] MEDS ORDERED: ANTIFUNGAL30 GM TOP (13:24)
--- NOTE | 2024-11-08 14:23 | NUR ---
SHIFT/DISCHARGE SUMMARY: PATIENT ARRIVES TO ROOM AT 0915 VIA GURNEY FROM RECOVERY FOR R GREAT TOE AMPUTEE, DONE BY DR. HOOD. SENSATIONS INTACT, DENIES PAIN TO SITE c SLIGHT SANGUINEOUS DRAINAIGE APPEARS ON ARLEEN WRAPPED DRESSING. REMOVED ARLEEN WRAPPED, REINFORCE c 4X4 GUAZE, KERLEX AND PLACED NEW ARLEEN WRAPPED DRESSING TO SITE. PATIENT MEDRIC, ADMISSION AND SKIN ASSESSMENT c 2 RN'S VERIFIED COMPLETED. PATIENT REQUESTING TO GO HOME, PER PATIENT "I DON'T PLAN TO STAYED ONE MORE NIGHT I WOULD LIKE TO GO HOME TODAY. I'M AWARE THEY JUST TOOK MY TOE, BUT I NEED TO GO HOME. I ALREADY HAVE HH SERVICE THAT COMES TO MY HOUSE 3X A WEEK." NOTIFIED CHARGE, RN MARIA DOLORES c PATIENT REQUEST. PERFECTO NOTIFIED DR. HOOD AND HOSPILTALIST. DR. HOOD AND HOSPITALIST AGREED c PATIENT DECISIONS. PIV DC'D. PATIENT DISCHARGE HOME. DISCHARGE INSTRUCTIONS PACKET GIVEN TO PATIENT. PATIENT EDUCATED ON R GREAT TOE POST OP AMPUTEE CARE AT HOME, PARTIAL WIEGHT BEARING, WEAR POST OP SHOE, NEW RX MEDS, PAIN MEDS, POST-OP F/U c DR. HOOD AND PCP. PATIENT VERBALIZED UNDERSTANDING AND NO FURTHER QUESTIONS. RX WAS FAXED TO PATIENT PREFERRED PHARMACY-[facility] IN [place]. ALL PERSONAL BELONGINGS WERE SENT HOME c THE PATIENT. PATIENT LEFT THE ROOM AT 1400 TRANSPORTED VIA WHEELCHAIR BY MANAGER ENTERPRISE CONTENT MANAGEMENT TO PATIENT ENTRANCE.
== END 2024-11-08 14:00 | disposition home or self-care (01) ==
LOC: ER 18:08 → SURS 18:09 → ERHOLD 22:39 → ER 22:39 → SURS 11-08 08:40 → ERHOLD 11-08 09:23 → SURS 11-08 09:23
PROVIDERS: Physician Assistant; Podiatrist; ADMIT Student in an Organized Health Care Education/Training Program
PROC: 0Y6P0Z0 Detachment at Right 1st Toe, Complete, Open Approach (ICD-10-PCS; principal; 2024-11-08 08:00)
DX: E11.621 Type 2 diabetes mellitus with foot ulcer (principal); L97.514 Non-pressure chronic ulcer of other part of right foot with necrosis of bone; E11.52 Type 2 diabetes mellitus with diabetic peripheral angiopathy with gangrene; I96 Gangrene, not elsewhere classified; E11.69 Type 2 diabetes mellitus with other specified complication; M86.171 Other acute osteomyelitis, right ankle and foot; L03.031 Cellulitis of right toe; I87.2 Venous insufficiency (chronic) (peripheral); I11.0 Hypertensive heart disease with heart failure; I50.9 Heart failure, unspecified; J44.9 Chronic obstructive pulmonary disease, unspecified; F17.200 Nicotine dependence, unspecified, uncomplicated; Z89.412 Acquired absence of left great toe; Z88.5 Allergy status to narcotic agent; Z79.82 Long term (current) use of aspirin; Z79.84 Long term (current) use of oral hypoglycemic drugs; Z79.899 Other long term (current) drug therapy
CPT/HCPCS: 36415; 73630; 80053; 82947; 83735; 85025; 85027; 85651; 87071; 87075; 87076; 87077; 87147; 87185; 87186; 87205; 88305; 88311; 93005; 93010; 93926; 99285-25; A9270; J1100; J1171; J1885; J2003; J2371; J2405; J2704; J2765; J7120

== ENCOUNTER 2025-02-14 07:09 | Day surgery (SDC) | payer MEDICARE, OTHER ==
[~2025-02-14] VITALS: Ht 185.4 cm; Wt 135.1 kg
[~2025-02-14 07:09] MED LIST changes: +ANTIFUNGAL30 GM TOP; -GLIP10ER; +GLIP5ER PO
[2025-02-14 07:32] VITALS: BP 149/95
[2025-02-14] MEDS ORDERED: NS 500 ML IV ONE (07:33)
[2025-02-14] MEDS ORDERED: NS 1,000 ML IV ONE ×3 (07:34→10:38)
[2025-02-14] MEDS ORDERED: Nitroglycerin 2 MG/20 ML BTL ONE (07:34)
[2025-02-14] MEDS ORDERED: SULTRIDS PO (07:34)
[2025-02-14] MEDS ORDERED: Heparin Sodium 1000 Units/ML 10ML MDV ONE ×2 (07:34)
[2025-02-14] MEDS ORDERED: NS 250 ML IV ONE (07:36)
[2025-02-14] MEDS ORDERED: Midazolam HCl 1MG / ML 2ML Vial ONE ×2 (09:53→10:44)
[2025-02-14] MEDS ORDERED: FentaNYL Citrate 50 MCG/ML 2 ML Injection ONE ×2 (09:53→10:44)
[2025-02-14] MEDS ORDERED: Verapamil HCL 2.5 MG/ML 2ML Injection ONE (10:38)
[2025-02-14] MEDS ORDERED: Nitroglycerin/D5W 250 ML IV ONE (10:38)
[2025-02-14 12:00] VITALS: BP 108/63
[2025-02-14 12:15] VITALS: BP 114/63
[2025-02-14 12:30] VITALS: BP 130/70
[2025-02-14 13:00] VITALS: BP 142/64
[2025-02-14 13:30] VITALS: BP 108/89
--- NOTE | 2025-02-14 13:57 | NUR ---
PATIENT RETURNED EARLIER FROM [employer], LEFT GROIN ACCESS INTACT, NO CONCERNS, ELEVATED HOB PER PROTOCOL, AMBULATED RECENTLY TO RESTROOM AFTER PATIENT SAT UP TO EAT AND SITE REMAINED INTACT. GIVEN COPY OF D/C INSTRUCTIONS, MED LIST AND FEM SITE CARE, DISCUSSED ALL AND PATIENT VERBALIZE INSTRUCTIONS ESPECIALLY R/T SITE CARE AND CONCERNS, PATIENT DRESSED, IV REMOVED, TAKING PATIENT AT PRESENT BY WHEELCHAIR TO VEHICLE TO MEET DAUGHTERRACHEL AT 1400.
== END 2025-02-14 14:28 | disposition home or self-care (01) ==
LOC: MHTC 07:09
DX: E11.51 Type 2 diabetes mellitus with diabetic peripheral angiopathy without gangrene (principal); I70.221 Atherosclerosis of native arteries of extremities with rest pain, right leg; I10 Essential (primary) hypertension; J44.9 Chronic obstructive pulmonary disease, unspecified; E11.40 Type 2 diabetes mellitus with diabetic neuropathy, unspecified; E78.5 Hyperlipidemia, unspecified; F17.210 Nicotine dependence, cigarettes, uncomplicated; Z88.5 Allergy status to narcotic agent; Z79.82 Long term (current) use of aspirin; Z79.84 Long term (current) use of oral hypoglycemic drugs; Z79.899 Other long term (current) drug therapy; Z89.411 Acquired absence of right great toe
CPT/HCPCS: 76937; 82947; 99152; 99153; C1724; C1725; C1760; C1769; C1887; C1894; J1644; J2250; J3010; J7030; J7050; Q9967

== ENCOUNTER → 2025-04-29 | Outpatient (CLI) | payer MEDICARE, OTHER | END | disposition home or self-care (01) | LOC: LAB 18:38 → LAB SHORT 18:38 | DX: L08.9 Local infection of the skin and subcutaneous tissue, unspecified (principal) | CPT/HCPCS: 87070; 87075; 87077; 87147; 87205 ==

== ENCOUNTER 2025-08-09 07:53 | Emergency (ER) | payer MEDICARE ==
[~2025-08-09] VITALS: Ht 185.4 cm; Wt 129.3 kg
[2025-08-09] MEDS ORDERED: CEPH500 PO (08:38)
[2025-08-09] MEDS ORDERED: HYDROmorphone HCl/Pf 1MG SYR IV ONE (08:55)
[2025-08-09] MEDS ORDERED: Piperacillin/Tazobactam Sod 3.375 GM in NS 100 ML IV ONE (08:55)
[2025-08-09] MEDS ORDERED: Ondansetron HCl 2 MG / ML 2ML Vial IV ONE (08:55)
[2025-08-09 09:12] LABS: BASOPHILS ABSOLUTE AUTO 0.03 K/mm3 (0.00-0.23); BASOPHILS PERCENT AUTO 0 % (0-2); EOSINOPHILS ABSOLUTE AUTO 0.05 K/mm3 (0.00-0.68); EOSINOPHILS PERCENT AUTO 0 % (0-6); Hematocrit 41.6 % (37.0-53.0); Hemoglobin 14.6 g/dL (13.5-17.5); IMMATURE GRAN ABSOLUTE AUTO 0.06 K/mm3 (0.00-0.10); IMMATURE GRAN PERCENT AUTO 0 % (0-1); LYMPHOCYTES ABSOLUTE AUTO 1.21 K/mm3 (0.84-5.20); LYMPHOCYTES PERCENT AUTO 9 % (21-46); MONOCYTES ABSOLUTE AUTO 0.87 K/mm3 (0.16-1.47); MONOCYTES PERCENT AUTO 6 % (4-13); Mean Corpuscular HGB Conc 35.1 g/dL (31.5-36.5); Mean Corpuscular Volume 87 fL (80-100); NEUTROPHILS ABSOLUTE AUTO 11.67 K/mm3 (1.96-9.15); NEUTROPHILS PERCENT AUTO 84 % (41-73); NRBC ABSOLUTE 0.00 K/mm3 (0.00-0.02); NRBC Auto 0.0 /100 WBC (0.0-0.2); Platelet Count 258 K/mm3 (150-400); RDW Coefficient Variation 13.8 % (11.7-14.2); RDW Standard Deviation 44.2 fL (35.1-46.3)
[2025-08-09] MEDS ORDERED: NS 1,000 ML IV SCH (09:20)
[2025-08-09 09:30] LABS: Alanine Aminotransfer (ALT/SGP 25.0 U/L (12-78); Albumin, Blood 3.4 g/dL (3.4-5.0); Albumin/Globulin Ratio 0.8 (0.8-1.8); Anion Gap 8.0 mmol/L (3-11); Aspartate Aminotrans (AST/SGOT 14.0 U/L (12-37); Bilirubin, Total 0.5 mg/dL (0.1-1.0); Blood Urea Nitrogen 11.0 mg/dL (8-24); CO2, Blood 24.0 mmol/L (21-32); Calcium, Blood 9.4 mg/dL (8.5-10.1); Chloride, Blood 101.0 mmol/L (98-108); Creatinine, Blood 0.67 mg/dL (0.60-1.20); Globulin, Blood 4.4 g/dL (2.2-4.0); Glucose, Blood 149.0 mg/dL (70-99); Potassium, Blood 4.1 mmol/L (3.5-5.5); Sodium, Blood 129.0 mmol/L (136-145); Total Protein, Blood 7.8 g/dL (6.4-8.2)
[2025-08-09 10:47] VITALS: BP 132/68
[2025-08-09] MEDS ORDERED: AMOCLA875 PO (11:10)
[2025-08-09] MEDS ORDERED: OXAYDO5 M1 PO (11:10)
[2025-08-09] MEDS ORDERED: ONDA4ODT MM (11:15)
== END 2025-08-09 11:48 | disposition home or self-care (01) ==
LOC: ER 07:53
PROVIDERS: Student in an Organized Health Care Education/Training Program
DX: L03.116 Cellulitis of left lower limb (principal); E87.1 Hypo-osmolality and hyponatremia; D72.829 Elevated white blood cell count, unspecified; E11.9 Type 2 diabetes mellitus without complications; J44.9 Chronic obstructive pulmonary disease, unspecified; I10 Essential (primary) hypertension; F17.200 Nicotine dependence, unspecified, uncomplicated; Z89.411 Acquired absence of right great toe; Z88.5 Allergy status to narcotic agent; Z79.84 Long term (current) use of oral hypoglycemic drugs; Z79.899 Other long term (current) drug therapy
CPT/HCPCS: 36415; 73701; 80053; 83605; 85025; 87040; 96365-59; 96375; 99284-25; J1171; J2405; J2543; J7030; J7120; Q9967